=== PATIENT | male | born 1980 ===

== ENCOUNTER 2018-08-01 05:28 | Inpatient (IN) | payer OTHER, MEDICAID, SELFPAY ==
[2018-08-01] VITALS (8 sets, daily range): BP systolic 113–146; BP diastolic 73–99; PULSE 71–87; RESP 16–18; TEMP 36.5–36.9; O2SAT 96–99; BMI 33.0
--- NOTE | 2018-08-01 | DI.MRI.S_ITS ---
PROCEDURE: MR LOWER LEG RT WO/W CON INDICATIONS: swollen leg r/o infection TECHNIQUE: Noncontrast coronal T1 spin echo and STIR, sagittal T1 spin echo with fat saturation and STIR, axial T1 spin echo and T2 fast spin echo with fat saturation. After the administration of contrast, axial/sagittal/coronal T1 spin echo with fat saturation through the right lower leg.. COMPARISON: None. FINDINGS: Image quality: Excellent. Bones: The visualized bone marrow demonstrates normal signal on all sequences. The overlying cortex appears intact. No abnormal intraosseous enhancement. Soft tissues: No soft tissue masses are visualized. The scanned muscles demonstrate normal overall muscle bulk. There is intramuscular T2 hyperintense signal within lateral portion of inferior soleus muscle as well as distal tibialis posterior muscle and flexor hallucis longus muscle extending to the level of the musculotendinous junction. Finding could represent muscle strain or myositis. Mild contrast enhancement in these areas also noted. No discrete intramuscular mass is seen. There is subcutaneous soft tissue swelling and edema around mid to distal shaft of lower leg and around ankle joint. Impression: 1. Suggestion of low-grade muscle strain versus myositis involving distal and lateral aspect of soleus muscle, distal tibialis posterior muscle and distal flexor hallucis longus muscle extending to musculotendinous junction. No discrete intramuscular mass or fluid collection is seen. 2. Soft tissue swelling and edema around mid to distal lower leg. No drainable soft tissue fluid collection or soft tissue mass is seen. 3. No marrow signal abnormality. No fracture or dislocation. No abnormal intraosseous enhancement. Dictated by: Rodolfo Salinas M.D. on 08/01/2018 at 16:16 Approved by: Rodolfo Salinas M.D. on 08/01/2018 at 16:31
--- NOTE | 2018-08-01 08:25 | PM.HP.1 ---
History of Present Illness Date Patient Seen: 08/01/18 Chief complaint: cellulitis of lower extremity Patient History Medical History Hypertension (Acute) Nicotine dependence (Acute) Surgical History History of lumbar laminectomy (Acute) Meds Home Medications Medication Instructions Recorded Confirmed Type gabapentin 600 mg PO TID 08/01/18 08/01/18 History methadone 150 mg DAILY 08/01/18 08/01/18 History Allergies Allergy/AdvReac Type Severity Reaction Status Date / Time codeine Allergy Verified 08/01/18 08:35 Penicillins Allergy Verified 08/01/18 08:35 Review of Systems Review of Systems All systems reviewed & are unremarkable except as noted in HPI and below Exam Narrative Exam Narrative: pleasant male in no acute distress HEENT: NC/AT, EOMI, Oropharynx clear, neck supple without adenopathy Lungs: clear to auscultation CV: RRR nl Sl S2 Abd: obese/soft/ non tender/ non distended/ no HSM Ext: Right leg with 3-4 +edema, blistering, erythema along anterior lane, pulses in tact Left leg with mild erythema along anterior lane Neuro: Non focal Skin: as above Psychiatry: patient is alert, oriented, appropriate Assessment & Plan (1) Cellulitis: Problem details: Will continue vancomycin and add ceftriaxone. Will obtain MRI of lower extremity to r/o abscess Will obtain labs here today Current visit: Yes Status: Acute (2) Nicotine dependence: Problem details: Continue nicotine patch Current visit: Yes Status: Acute (3) Hypertension: Problem details: will follow blood pressure and add agent if indicated Current visit: Yes Status: Acute (4) Encounter for long-term methadone use for opiate dependence: Current visit: Yes Status: Acute Plan: Assessment/Plan Narrative: DVT prophylaxis, full code
[2018-08-01] MEDS: DEXTROSE 5%-0.45% NS 1,000 ML 100 ML IV (09:05)
[2018-08-01] MEDS: CEFTRIAXONE 2 GM/50 ML FROZ.PIGGY IV (09:10)
[2018-08-01] MEDS: MORPHINE 4 MG/ML INJ IV ×3 (09:10→21:09)
[2018-08-01] MEDS: ENOXAPARIN 40 MG/0.4 ML SYRINGE SUBCUT (09:13)
[2018-08-01] MEDS: NICOTINE 21 MG PATCH TOP (09:13)
--- NOTE | 2018-08-01 10:21 | PC.NURSE ---
Pt arrived via EMS transfer at 0710 with 1st dose of IV vanco infusing into RT FA IV. A&Ox3, VSS. RLE warm/tender/erythema present. Noted two intact fluid filled blisters to inner and outer ankle. Palpable pedal pulses. Initiated new orders. Pain managed with IV MS. Will continue to monitor.
[2018-08-01] MEDS: DOCUSATE 100 MG CAPSULE PO ×2 (10:59→20:53)
[2018-08-01] MEDS: METHADONE 10 MG TABLET 150 MG PO (10:59)
[2018-08-01] MEDS: VANCOMYCIN 1,500 MG in SODIUM CHLORIDE 0.9% 500 ML 333.333 ML IV (13:51)
[2018-08-01] MEDS: GABAPENTIN 600 MG TABLET PO ×2 (15:59→20:53)
[2018-08-01] MEDS: INFLUENZA VACCINE 0.5 ML SYRINGE IM (16:04)
[2018-08-01] MEDS: IBUPROFEN 600 MG TABLET PO (17:16)
[2018-08-01 17:21] LABS: Alanine Aminotransferase 35 IU/L (21-72); Albumin 3.5 g/dL (3.5-5.0); Albumin Globulin Ratio 1.2 (1.0-2.8); Alkaline Phosphatase 76 U/L (38-126); Aspartate Aminotransferase 34 IU/L (17-59); BUN Creatinine Ratio 26.7 (6-22); Bilirubin Total 0.7 mg/dL (0.2-1.3); Blood Urea Nitrogen 16 mg/dL (9-20); Calcium 8.9 mg/dL (8.4-10.2); Carbon Dioxide 32 mmol/L (22-32); Chloride 101 mmol/L (98-107); Estimated Glomerular Filt Rate > 60.0 mL/min (>60); Glucose 80 mg/dL (70-100); HEMOLYSIS < 15 (0-50); Potassium 4.3 mmol/L (3.4-5.1); Sodium 140 mmol/L (137-145); Total Protein 6.5 g/dL (6.3-8.2)
[2018-08-01] MEDS: VANCOMYCIN 1,500 MG in SODIUM CHLORIDE 0.9% 500 ML 333 ML IV (21:03)
--- NOTE | 2018-08-01 22:35 | PC.NURSE ---
Evening Shift Note- Patient called complaining of pain to IV site. IV site found infultrated and swollen. IV libne to right forearm removed, bandage applied, and arm erapped with warm blankiet. new IV placed to left hand with 24G. patient tolerated. prn IV morphine given as ordered per patient request. patient tolerated with no s/s of ase noted. RLE elevated up on pillows. RLE red, swollen, warm to touch, and tender. reddness marked with sharpie. 2 large fluid filled blisters found upon first assessment. rechecked leg at 2100 with 5 additional blisters found starting on back of leg and 3-4 starting on front of leg. reddness within marked boarders. will continue to monitor.
[2018-08-02] VITALS (8 sets, daily range): BP systolic 109–139; BP diastolic 60–86; PULSE 61–73; RESP 15–20; TEMP 36.4–36.6; O2SAT 96–98; BMI 33.0
--- NOTE | 2018-08-02 00:04 | PC.NURSE ---
Addendum entered by Susan Reyna R.N. 08/02/18 06:38: States pain is 7/10 but declines Morphine but agreeable to taking Ibuprofen. Is aware Morphine is again available anytime around 0700. Original Note: Addendum entered by Susan Reyna R.N. 08/02/18 06:27: Medicated with Morphine at 0253 for 7/10 pain and then slept most of shift. Up independently to bathroom to have BM. Original Note: Patient is alert and oriented. Breath sounds CTA with RA sat of 96%. HRR. Denies nausea. BT present and abdomen is soft. Denies dysuria, frequency, urgency or incontinence and is using urinal at bedside. Independent with bed mobility. Right lower leg/foot is red, warm and swollen but within markings. Several large fluid filled blisters along with multiple small blistered areas. States pain is 4/10 but tolerable; knows he can have more Morphine around 0100. Fall risk score is medium but bed alarm not in use at this time.
[2018-08-02] MEDS: DEXTROSE 5%-0.45% NS 1,000 ML 100 ML IV (00:46)
[2018-08-02] MEDS: MORPHINE 4 MG/ML INJ IV ×5 (02:53→22:03)
[2018-08-02] MEDS: VANCOMYCIN 1,500 MG in SODIUM CHLORIDE 0.9% 500 ML 333 ML IV ×3 (06:21→22:04)
[2018-08-02] MEDS: IBUPROFEN 600 MG TABLET PO ×3 (06:37→16:04)
[2018-08-02] MEDS: METHADONE 10 MG TABLET 150 MG PO (07:53)
[2018-08-02] MEDS: NICOTINE 21 MG PATCH TOP (07:58)
[2018-08-02] MEDS: DOCUSATE 100 MG CAPSULE PO ×2 (08:00→19:54)
[2018-08-02] MEDS: GABAPENTIN 600 MG TABLET PO ×3 (08:00→19:54)
[2018-08-02] MEDS: ENOXAPARIN 40 MG/0.4 ML SYRINGE SUBCUT (08:00)
[2018-08-02] MEDS: CEFTRIAXONE 2 GM/50 ML FROZ.PIGGY IV (08:46)
[2018-08-02 09:26] LABS: Add Manual Diff / Slide Review NO; Basophils Percent Auto 0.9 % (0-2); Eosinophils Percent Auto 5.1 % (2-4); Hematocrit 32.8 % (41-53); Hemoglobin 11.4 g/dL (13.5-17.5); Lymphocytes Percent Auto 25.5 % (25-40); Mean Corpuscular HGB Conc 34.6 % (30-36); Mean Corpuscular Hemoglobin 30.1 PG (26-34); Mean Corpuscular Volume 87.1 fL (80-100); Monocytes Percent Auto 7.5 % (3-14); Neutrophils Absolute Auto 3200 /uL (3000-5900); Platelet Count 163 X10^3/uL (150-400); Red Blood Cell Count 3.77 X10^6/uL (4.5-5.9); Red Cell Distribution Width 13.9 % (11.6-14.8); White Blood Cell Count 5.2 X10^3/uL (4.5-11.0)
[2018-08-02 09:42] LABS: BUN Creatinine Ratio 23.3 (6-22); Blood Urea Nitrogen 14 mg/dL (9-20); Calcium 8.7 mg/dL (8.4-10.2); Carbon Dioxide 28 mmol/L (22-32); Chloride 106 mmol/L (98-107); Estimated Glomerular Filt Rate > 60.0 mL/min (>60); Glucose 136 mg/dL (70-100); HEMOLYSIS < 15 (0-50); Sodium 143 mmol/L (137-145)
--- NOTE | 2018-08-02 10:17 | PC.NURSE ---
Addendum entered by Susan Ventura R.N. 08/02/18 15:54: 1500 Pt with very candid conversation about his concerns about continuing in methadone program out patient after d/c from this facility, That program is keeping me out of nursing home, it's the only thing I have to staying in line and out of trouble Reassured of continued care between facilities. Original Note: Addendum entered by Genoveva Spears R.N. 08/02/18 15:48: Per Pt request, Call into [facility] Angie Cuellar x [phone], LMOM for Pt admit status, to protect placement in methadone program. Ok to release information to Angie, Per Pt. Original Note: Addendum entered by Susan Ventura R.N. 08/02/18 14:21: Obtained swab of blister fluid for culture sent to lab. Original Note: Am shift Pt is reporting pain this AM, medicated with scheduled methadone. Reassessed @ 04/02, gave IVP morphine, with good effect. RLE elevated and erythema within marked borders, intact blisters x3. IV to L hand intact, reviewed POC and concern for continued IV therapy with poor IV access. Will address with Dr Wilburn.
--- NOTE | 2018-08-02 12:09 | P.PN_ITS ---
Subjective Date Patient Seen: 08/02/18 Interval history: No complaints of nausea,diarrhea, or constipation. Leg pain improved. Swelling and redness has improved. Increased number of blisters with increased fluid/size Exam Vital Signs (past 8 hours): - 08/02/18 07:00 08/02/18 07:20 Temperature 97.9 F Pulse Rate 71 Respiratory Rate 15 Blood Pressure 120/65 Pulse Oximetry 98 98 Oxygen Delivery Method Room Air Oxygen Flow Rate 0 Narrative Exam Narrative: Pleasant male in NAD Lungs: clear to auscultation CV: RRR nl Sl S2 Abd: soft/ non tender/ non distended Right leg swollen 3+ edema, increased size and number of blisters, fluid filled decreased warmth and erythema Objective Labs Result Diagrams: 08/02/18 09:10 08/02/18 09:10 Labs: Laboratory Results - last 24 hr 08/01/18 08/02/18 08/02/18 11:20 09:10 09:10 WBC 5.2 RBC 3.77 L Hgb 11.4 L Hct 32.8 L MCV 87.1 MCH 30.1 MCHC 34.6 RDW 13.9 Plt Count 163 Neut % (Auto) 61.0 Lymph % (Auto) 25.5 [place] % (Auto) 7.5 Eos % (Auto) 5.1 H Baso % (Auto) 0.9 Neut # (Auto) 3200 Sodium 140 143 Potassium 4.3 4.0 Chloride 101 106 Carbon Dioxide 32 28 BUN 16 14 Creatinine 0.60 L 0.60 L Estimated GFR > 60.0 > 60.0 BUN/Creatinine Ratio 26.7 H 23.3 H Glucose 80 136 H Calcium 8.9 8.7 Total Bilirubin 0.7 AST 34 ALT 35 Alkaline Phosphatase 76 Total Protein 6.5 Albumin 3.5 Globulin 3.0 Albumin/Globulin Ratio 1.2 Assessment & Plan (1) Cellulitis: Problem details: Will continue vancomycin and add ceftriaxone. Will obtain MRI of lower extremity to r/o abscess Will obtain labs here today. Will obtain gram stain and culture of aspirate from blisters Current visit: Yes Status: Acute (2) Nicotine dependence: Problem details: Continue nicotine patch Current visit: Yes Status: Acute (3) Hypertension: Problem details: will follow blood pressure and add agent if indicated Current visit: Yes Status: Acute (4) Encounter for long-term methadone use for opiate dependence: Problem details: Continue methadone Current visit: Yes Status: Acute
[2018-08-02 14:03] LABS: Vancomycin Trough 12.5 ug/mL (10-20)
[2018-08-02] MEDS: VANCOMYCIN TROUGH 1 REQUEST MISC (15:42)
[2018-08-02] MEDS: ACETAMINOPHEN 325 MG TABLET 650 MG PO (19:54)
[2018-08-03] VITALS (11 sets, daily range): BP systolic 129–142; BP diastolic 63–96; PULSE 64–73; RESP 16–20; TEMP 36.6–36.8; O2SAT 94–99
--- NOTE | 2018-08-03 00:48 | PC.NURSE ---
Addendum entered by Susan Reyna R.N. 08/03/18 06:13: States he is having more pain in bottom of foot this morning. Rates severity as 8/10 and states it is achy and sharp. Medicated with Morphine. Original Note: Addendum entered by Susan Reyna R.N. 08/03/18 04:27: 0210 Patient complains of 6/10 right leg pain; medicated with Morphine. Original Note: Patient is alert and oriented. Breath sounds CTA with RA sat of 98%. HRR with BP of 138/86. Denies nausea. BT present and abdomen is soft. Denies dysuria, frequency, urgency or incontinence; using urinal. Independent with mobility; denies weakness or unsteadiness when up. Right LE with decreased redness and receding from markings drawn. Still several large fluid filled blisters (posterior right ankle blister with small amount clear drainage) and multiple smaller fluid filled blisters noted. States pain is 4/10 but tolerable and declines need for pain medication. Fall risk score is moderate.
[2018-08-03] MEDS: MORPHINE 4 MG/ML INJ IV ×5 (02:10→21:30)
[2018-08-03] MEDS: SODIUM CHLORIDE 0.9% FLUSH 10 ML IV ×5 (02:11→21:31)
[2018-08-03] MEDS: VANCOMYCIN 1,500 MG in SODIUM CHLORIDE 0.9% 500 ML 333 ML IV (05:56)
[2018-08-03] MEDS: SODIUM CHLORIDE 0.9% 250 ML 21 ML IV (05:56)
[2018-08-03] MEDS: METHADONE 10 MG TABLET 150 MG PO (08:07)
[2018-08-03] MEDS: CEFTRIAXONE 2 GM/50 ML FROZ.PIGGY IV (08:40)
[2018-08-03] MEDS: GABAPENTIN 600 MG TABLET PO ×3 (08:43→20:18)
[2018-08-03] MEDS: ENOXAPARIN 40 MG/0.4 ML SYRINGE SUBCUT (08:44)
[2018-08-03] MEDS: NICOTINE 21 MG PATCH TOP (08:44)
--- NOTE | 2018-08-03 11:21 | PM.PN.1 ---
Subjective Date Patient Seen: 08/03/18 Interval history: No specific complaints. Overall appears to be improving. No nausea, diarrhea or constipation Exam Vital Signs (past 8 hours): - 08/03/18 03:54 08/03/18 07:00 08/03/18 07:40 Temperature 98.2 F 97.9 F Pulse Rate 65 73 Respiratory Rate 16 16 Blood Pressure 131/63 142/96 H Pulse Oximetry 97 98 99 08/03/18 10:41 Temperature Pulse Rate Respiratory Rate Blood Pressure Pulse Oximetry 94 Oxygen Delivery Method Room Air Oxygen Flow Rate 0 Narrative Exam Narrative: Pleasant male in no acute distress Lungs: Clear to auscultation CV: RRR nl Sl S2 ABd: Soft/ non tender/ non distended Ext: right leg with decreased erythema, no new blisters, still with 3+ edema, but no warmth-overall looks improved Objective Labs Result Diagrams: 08/02/18 09:10 08/02/18 09:10 Labs: Laboratory Results - last 24 hr 08/02/18 13:35 Vancomycin Trough 12.5 Assessment & Plan (1) Cellulitis: Problem details: Will continue vancomycin and add ceftriaxone. Will obtain MRI of lower extremity to r/o abscess Will obtain labs here today. Will obtain gram stain and culture of aspirate from blisters. Aspirate negative. Patient will need continued IV antibiotics in the hospital for 24-48 hours Current visit: Yes Status: Acute (2) Nicotine dependence: Problem details: Continue nicotine patch Current visit: Yes Status: Acute (3) Hypertension: Problem details: will follow blood pressure and add agent if indicated Will start JOE-I Current visit: Yes Status: Acute (4) Encounter for long-term methadone use for opiate dependence: Problem details: Continue methadone Current visit: Yes Status: Acute
[2018-08-03] MEDS: LISINOPRIL 10 MG TABLET PO (11:33)
--- NOTE | 2018-08-03 14:27 | PC.NURSE ---
Pt is alert and oriented. Independent while ambulating in room, denies any weakness. BP was elevated this AM 142/96, Lisinopril given and BP decreased in the afternoon to 129/81. Continue to monitor BP. Gram stain and culture of aspirated fluid from blister came back negative. Continue with IV vancomycin and ceftriaxone. Redness on right lower extremity is receding from previous marking. Several blisters still present on right lower extremity. Pt verbalized pain 4/10 and burning sensation in right foot, given IVP morphine at 1120. Continue to admin nicotine patch and methadone due to nicotine dependence and opiate dependence. Pt states the nicotine patch caused nightmares last night, but verbalized need for patch this AM.
[2018-08-03] MEDS: VANCOMYCIN 1,500 MG in SODIUM CHLORIDE 0.9% 500 ML 250 ML IV (14:35)
[2018-08-03] MEDS: IBUPROFEN 600 MG TABLET PO (20:17)
[2018-08-03] MEDS: DOCUSATE 100 MG CAPSULE PO (20:18)
[2018-08-03] MEDS: VANCOMYCIN 1,500 MG in SODIUM CHLORIDE 0.9% 500 ML 333.3 ML IV (22:12)
--- NOTE | 2018-08-03 23:49 | PC.NURSE ---
Addendum entered by Susan Reyna R.N. 08/04/18 06:05: Slept most of shift. States pain this morning is 6/10; medicated with Morphine and Vancomycin infusion started. Original Note: Alert and oriented. Breath sounds CTA with RA sat of 97%. HRR. Denies nausea. BT present and abdomen is soft. Independent with mobility. Using urinal to void in order to assess accurate output. Right LE remains erythemic but continuing to improve and recede from markings. Still with multiple size fluid filled blisters with largest ones on posterior ankle and lateral ankle. States pain currently 4/10 and tolerable; had Morphine at 2130. Right LE with 2+ edema and warm to touch. Fall risk score is moderate; patient is steady on feet so bed alarm not being used but reminded to call for assist should he feel dizzy or unsteady when getting up; verbalizes understanding.
[2018-08-04] MEDS: MORPHINE 4 MG/ML INJ IV (05:48)
[2018-08-04] MEDS: SODIUM CHLORIDE 0.9% FLUSH 10 ML IV (05:49)
[2018-08-04] MEDS: SODIUM CHLORIDE 0.9% 250 ML 21 ML IV (05:49)
[2018-08-04 05:50] VITALS: BP 125/89; PULSE 61; RESP 18; TEMP 36.5; O2SAT 96
[2018-08-04] MEDS: VANCOMYCIN 1,500 MG in SODIUM CHLORIDE 0.9% 500 ML 333 ML IV (05:56)
[2018-08-04 07:00] VITALS: O2SAT 98
[2018-08-04] MEDS: NICOTINE 21 MG PATCH TOP (07:47)
[2018-08-04] MEDS: METHADONE 10 MG TABLET 150 MG PO (08:37)
[2018-08-04] MEDS: GABAPENTIN 600 MG TABLET PO ×2 (08:37→12:46)
[2018-08-04] MEDS: LISINOPRIL 10 MG TABLET PO (08:37)
[2018-08-04 09:00] VITALS: BP 130/80; PULSE 72; RESP 24; TEMP 36.6; O2SAT 97
[2018-08-04 10:50] VITALS: BP 131/82; PULSE 61; RESP 20; TEMP 36.4; O2SAT 98
--- NOTE | 2018-08-04 11:14 | PC.NURSE ---
Julian was seen by Dr. Garcia very early this AM and Dr. Garcia stated he was going to order to discharge patient. Julian was able to shower. RLE drsg. applied after shower, as wearing street clothes may cause very lg. blisters to rupture. Julian states RLE pain is controlled currently at a 01/31. VSS. Awaiting orders. Julian may need help from to arrange a ride home to [place], as he has no one available to come get him. He attempted to call his sister before she went to work to arrange a ride from her later today, but he was not able to get through to her.
--- NOTE | 2018-08-04 11:28 | CM.DPC ---
Discussed in rounds that per Dr Garcia, this patient should be discharged and is stable to wait for his ride in the lobby and does not need to remain in the room.
--- NOTE | 2018-08-04 11:47 | PM.DS.1 ---
History of Present Illness Date Patient Seen: 08/04/18 Time Patient Seen: 07:00 Chief complaint: cellulitis of lower extremity Narrative: Patient with history of IV drug abuse is admitted to the hospital with a cellulitis to the right lower extremity. Patient was started on vancomycin and Rocephin antibiotics to treat. Patient notes that he was a regular IV drug abuser up until about 9 months ago. At that time patient suffered an epidural abscess and recalls having had near paralysis of his lower extremities for several months when treated. This certainly made a great impression on the patient who had abstain from IV drug abuse for these past 9 months up until about 5 days ago. Patient claims he had 1 day that he was using IV heroin when he met up with a friend who was an active IV drug abuser it is known from the past.. Patient notes that he scraped his leg in the past week or so and despite apparently created a nidus for the infection. Discharge Providers Date of admission: 08/02/18 14:43 Discharge provider: Ray Garcia MD Discharge Date: 08/04/18 Summary Discharge Diagnosis: Cellulitis versus erysipelas to right lower extremity: Patient initially provided vancomycin and Rocephin antibiotic. Patient had a favorable response to therapy. No abscess noted by hospitalist who admitted patient. Will discharge the patient home on clindamycin at 300 mg p.o. q.i.d. for 7 days. Patient with a very distinct margin to the skin infection And absence of abscess. This could certainly be an erysipelas as opposed to cellulitis. A good medication the [place] both types of conditions would be clindamycin. (2) Nicotine dependence: nicotine patch provided during hospital course (3) Hypertension: MARIO-I started during hospital course and will continue on discharge (4) Encounter for long-term methadone use for opiate dependence: Patient to continue his usual dose of methadone taken prior to admission Hospital Course: Patient admitted to the hospital with cellulitis of the right lower extremity. Patient given vancomycin and Rocephin antibiotic to treat. Patient was continued on his methadone at the usual dose 150 mg daily. Patient noted with hypertension and started on Mario inhibitor lisinopril 10 mg daily which is continued upon discharge On my examination today TuesdayAugust 02 not so sure that this was a cellulitis instead of a erysipelas. Patient notes that it was a well bordered very brightly red skin condition. No abscess was identified Note the Streptococcus organisms are more likely to cause erysipelas versus Staph organisms causing cellulitis. In view of the absence of abscess the likelihood of an MRSA infection is less likely. Clindamycin would be a good choice to cover both erysipelas as well as cellulitis. Will continue the Mario inhibitor on discharge and provide clindamycin prescription for 7 days after discharge. Status at Discharge Functional status at discharge: independent ambulation Time Spent with Patient Greater than 30 minutes (35 min) Exam Vital Signs (past 8 hours): - 08/04/18 05:50 08/04/18 07:00 08/04/18 09:00 Temperature 97.7 F 97.8 F Pulse Rate 61 72 Respiratory Rate 18 24 Blood Pressure 125/89 130/80 Pulse Oximetry 96 98 97 Oxygen Delivery Method Room Air Oxygen Flow Rate 0 Narrative Exam Narrative: Patient is awake and alert no apparent distress anxious for discharge Respiratory is clear to auscultation with good air flow Cardiovascular regular rate rhythm no murmurs GI is benign and soft Extremities are warm Skin with apparent improvement in the coloration with less redness to the involved area with the region of infection kade. No evidence for abscess Objective Labs Result Diagrams: 08/02/18 09:10 08/02/18 09:10 Discharge Plan Discharge Plan Patient Disposition: Home Discharge Med Rec/Prescriptions Prescriptions: New clindamycin HCl 300 mg capsule 300 mg PO QID Qty: 21 RF: 0 lisinopril 10 mg Tablet 10 mg PO DAILY 30 Days Qty: 30 RF: 0 Continue gabapentin 600 mg tablet 600 mg PO TID RF: 0 methadone 150 mg powder 150 mg DAILY RF: 0 Provider Discharge Instructions Diet: Regular Skin/Wound/Dressing Care Report to your healthcare provider any signs of infection, such as:: chills, fever, night sweats, increased pain and unusual drainage Visit Report/Discharge Packet Instructions: DI for Cellulitis -- Adult Visit Report Forms: Stroke Signs & Symptoms Discharge Data Attending Provider: Raudel Fish Admit Date/Time: 08/02/18 14:43
--- NOTE | 2018-08-04 15:20 | CM.DPC ---
DCP Cont: According to information shared in multi-disciplinary rounds this morning, Dr Garcia planning to DC pt home today. Dr Garcia suggested if pt has a secured ride for this evening, he is safe to DC from room and wait for his ride in the waiting room or other location. No barriers indicated in rounds to pt's safe DC back home w/family and outpt f/u. Pt independent and A+Ox3. This afternoon; worked with RN Coordinator Christelle as she explained pt had been DC from his room and was calling the medical floor stating he could not get his sister to pick him up. Staff encouraged Silviano to wait in the acute care waiting room as we tried to determine safest plan for him. Bus route would be long and cumbersome for a recently discharged medical patient and Silviano could not afford a cab, he secured a ride from his brother in law for 2200 this evening. This QUALITY TECH and RN Coordinator Christelle agreed a medical relief fund would be appropriate for this gentlemen and Sacha was avialble to pick him up at 1545. Medical relief voucher was completed by this QUALITY TECH and signed by RN Coordinator Christelle. Silviano was very appreciative for the assistance in getting home. RAUL Brizuela
== END 2018-08-04 13:07 | disposition home or self-care (01) | DRG 383 ==
PROVIDERS: Internal Medicine; Admitting Provider Internal Medicine; Visit Provider Internal Medicine
DX: L03.116 Cellulitis of left lower limb (principal); F11.20 Opioid dependence, uncomplicated; A46 Erysipelas; I10 Essential (primary) hypertension; S81.811A Laceration without foreign body, right lower leg, initial encounter; F17.210 Nicotine dependence, cigarettes, uncomplicated
CPT/HCPCS: 36415; 73720; 80048; 80053; 80202; 85025; 87070; 87205; 90471; 90656; G0378; A9579; G0379; J0696; J1650; J2270; Q2038